=== PATIENT | female | born 1990 | race Two or more races ===

== ENCOUNTER 2024-11-30 10:44 | Emergency (ER) | payer OTHER ==
[~2024-11-30] VITALS: Ht 167.6 cm; Wt 91.2 kg
[2024-11-30 11:53] LABS: BASO # 0.1 10^3/uL (0.0-0.2); BASO % 0.6 % (0.0-1.0); EOS # 0.1 10^3/uL (0.0-0.5); EOS % 0.5 % (0.0-3.0); LYMPH # 2.3 10^3/uL (1.5-5.0); LYMPH % 23.0 % (24.0-44.0); MONO # 1.0 10^3/uL (0.0-0.8); MONO % 9.4 % (2.0-8.0); NEUTROPHILS # 6.6 10^3/uL (1.5-8.5); NEUTROPHILS % 66.0 % (36.0-66.0); PLATELET COUNT, AUTOMATED 254 10^3/uL (150-450)
[2024-11-30 12:26] LABS: CALCIUM LEVEL 9.2 MG/DL (8.5-10.1); CARBON DIOXIDE LEVEL 25 MMOL/L (20-31); CHLORIDE LEVEL 106 MMOL/L (98-107); CREATININE FOR GFR 0.50 MG/DL (0.55-1.30); GLOMERULAR FILTRATION RATE > 90.0 (>60); POTASSIUM SERUM 3.9 MMOL/L (3.5-5.1); SODIUM LEVEL 140 MMOL/L (136-145)
[2024-11-30 12:39] LABS: HCG, SERUM QUANTITATIVE 5610.1 MIU/ML (<4.2)
[2024-11-30 15:17] VITALS: BP 107/70; TEMP 98; O2SAT 99
[2024-11-30] MEDS: RHOGAM 300MCG (1500IU) INJ IM ONE (15:21)
== END 2024-11-30 15:28 | disposition home or self-care (01) ==
LOC: M ED 10:44
DX: O20.9 Hemorrhage in early pregnancy, unspecified (principal); Z3A.01 Less than 8 weeks gestation of pregnancy; Z87.59 Personal history of other complications of pregnancy, childbirth and the puerperium; O99.331 Smoking (tobacco) complicating pregnancy, first trimester; Z88.2 Allergy status to sulfonamides
CPT/HCPCS: 76801; 76817; 80048; 84702; 85025; 86850; 86900; 86901; 93976; 96372; 99283; J2790

== ENCOUNTER → 2024-12-02 | Outpatient (CLI) | payer OTHER | LOC: M PLALAB 14:05 | PROVIDERS: ATTEND Advanced Practice Midwife | DX: O20.9 Hemorrhage in early pregnancy, unspecified (principal); Z3A.00 Weeks of gestation of pregnancy not specified ==

== ENCOUNTER → 2024-12-04 | Outpatient (CLI) | payer OTHER ==
[2024-12-04 15:24] LABS: PLATELET COUNT, AUTOMATED 222 10^3/uL (150-450)
[2024-12-04 16:03] LABS: HIV 1&2 SCREEN NEGATIVE (NEGATIVE)
[2024-12-04 16:11] LABS: HEPATITIS C VIRUS ABY INDEX 0.02 INDEX (<0.8)
[2024-12-04 16:25] LABS: Trichomonas vaginalis (AMP) NOT DETECTED (NEGATIVE)
[2024-12-04 16:49] LABS: GC DNA AMPLIFICATION NEGATIVE (NEGATIVE)
[2024-12-04 17:40] LABS: HCG, SERUM QUANTITATIVE 6056.5 MIU/ML (<4.2)
== END ==
LOC: M PLALAB 12:18
PROVIDERS: ATTEND Advanced Practice Midwife
DX: O20.9 Hemorrhage in early pregnancy, unspecified (principal); Z3A.00 Weeks of gestation of pregnancy not specified